=== PATIENT | male | born 1960 | race Caucasian/White ===

== ENCOUNTER 2018-03-03 21:53 | Emergency (ER) | payer OTHER ==
[2018-03-04] MEDS: IBUPROFEN 800 MG TAB PO (01:11)
[2018-03-04] MEDS: CEFAZOLIN 1 GM INJ IM (01:12)
[2018-03-04] MEDS: LIDOCAINE 2% (MDV) 20 ML INJ INJ (01:12)
[2018-03-04] MEDS: STERILE WATER 1L IRRIG BTL IRR (01:14)
[2018-03-04] MEDS: DIPHTH/TET/ACEL PERTUSS (ADULT) 0.5 ML VIAL IM (01:14)
== END 2018-03-04 03:40 | disposition home or self-care (01) ==
LOC: FTE 21:53
DX: S91.302A Unspecified open wound, left foot, initial encounter (principal); W26.0XXA Contact with knife, initial encounter; Y92.9 Unspecified place or not applicable; Z23 Encounter for immunization
CPT/HCPCS: 12002; 73630-LT; 90471; 90715; 96372; 99284-25